=== PATIENT | male | born 1950 | race Caucasian/White ===

== ENCOUNTER 2019-02-18 06:42 | Outpatient (CLI) | payer OTHER ==
--- NOTE | 2019-02-22 11:33 | ECHO2D ---
Date of Exam: 02/18/19 Ordering Physician: DR. CHERELLE NAGEL Room #: OP Reason for Echo: SOB, CAD WITH STENT M-Mode Normal Adult Results LV Dimensions Normal Adult Results AoV Opening excursions >1.6 1.6 LVEDD-base- 3.5-5.8 5.1 Ao root dimensions 2.0-3.7 3.5 LVESD-base- 3.1-4.6 L. Atrium dimensions 1.9-3.8 4.6 Post. Wall thickness 0.8-1.1 1.1 IV septum (thickness) 0.7-1.2 1.2 Post. Wall excursion 0.72-1.3 NORMAL Septal motion NORMAL Systolic motion R. Ventricular cavity 1.5-2.0 NORMAL LVEF 60% 60% Paradoxical septal wall motion NORMAL 2-D : 2-D M Mode Echocardiogram was performed using apical four chamber and left parasternal long and short axis views. Mitral, tricuspid and aortic valves appear to be normal. Contractility of the left ventricle seems to be normal, so is the cavity size. Enlarged Left atrial cavity. Aortic root appears to be normal. There is no pericardial effusion. There is no thrombus noted in the left ventricular or left aortic cavity. No mitral valve prolapse noted. M-MODE: MV: NORMAL AV: NORMAL TV: NORMAL PV: CHAMBER SIZE: ENLARGED LEFT ATRIAL CAVITY WALL MOTION: NORMAL PERICARDIUM: NORMAL INTERPRETATION: 1. BORDERLINE LEFT VENTRICULAR HYPERTROPHY--ENLARGED LEFT ATRIAL CAVITY 2. NORMAL LEFT VENTRICULAR CONTRACTILITY 3. NORMAL VALVES MTDD
== END 2019-02-18 06:43 | disposition home or self-care (01) ==
LOC: CAR 06:42
PROVIDERS: ATTEND Internal Medicine
DX: R06.02 Shortness of breath (principal); I25.10 Atherosclerotic heart disease of native coronary artery without angina pectoris; Z95.5 Presence of coronary angioplasty implant and graft
CPT/HCPCS: 93005; 93010

== ENCOUNTER 2019-02-19 06:40 | Outpatient (CLI) ==
--- NOTE | 2019-02-22 08:17 | ECHOSTRESS ---
Date of Exam: 02/19/19 Ordering Physician: DR. CHERELLE NAGEL Reason for Echo: SOB, CAD WITH STENT, STRESS TEST--NO ISCHEMIA M-Mode Normal Adult Results LV Dimensions Normal Adult Results AoV Opening excursions >1.6 LVEDD-base- 3.5-5.8 Ao root dimensions 2.0-3.7 LVESD-base- 3.1-4.6 L. Atrium dimensions 1.9-3.8 Post. Wall thickness 0.8-1.1 IV septum (thickness) 0.7-1.2 Post. Wall excursion 0.72-1.3 Septal motion Systolic motion R. Ventricular cavity 1.5-2.0 LVEF 60% Paradoxical septal wall motion 2-D: NORMAL LEFT VENTRICULAR CONTRACTILITY--RESTING AND POST EXERCISE M-MODE: MV: AV: TV: PV: CHAMBER SIZE: WALL MOTION: NORMAL LEFT VENTRICULAR CONTRACTILITY--RESTING AND POST EXERCISE PERICARDIUM: INTERPRETATION: 1. NORMAL LEFT VENTRICULAR CONTRACTILITY--RESTING AND POST EXERCISE MTDD
--- NOTE | 2019-02-22 08:25 | STRESSECHO ---
Date of Test: 02/19/19 Ordering Physician: DR. CHERELLE NAGEL Occupation:RETIRED Reason for Exam: SOB, CAD WITH STENT Smoking History: NON SMOKER Height: 70" Weight: 198 LBS Current Medications: METFORMIN, JANUMENT, OMEPRAZOLE, METAXALONE,AMLODIPINE, FENOFIBRATE, LOSARTAN, TERAZOSIN, CARVEDILOL, TARKA, CLOPIDOGREL, CRESTOR, TRULICITY, TRESIBA, SOMA, HYDROCODONE Resting EKG: SINUS RHYTHM/ LEFT VENTRICLE HYPERTROPHY STRAIN PATTERN Target Heart Rate: 128/151 S-T SEGMENT STAGE MPH/GRADE HEART RATE BPM BLOOD PRESSURE MMHG RHYTHM +/- ELEVATION DEPRESSION SYMPTOMS AT REST 72 BPM 136/82 MMHG SR X NONE 1 1.7/10% 2 2.5/12% 3 3.4/14% 4 4.2/16% 5 5.0/18% Immediately After 143 BPM 148/78 MMHG SR X SHORT OF AIR Minutes Post Exercise 3:00 65 BPM SR X NONE Minutes Post Exercise 5:00 65 BPM 140/78 MMHG SR X NONE DURATION OF EXERCISE: 3:11 MAXIMUM HEART RATE REACHED: 143 BPM REASON FOR TERMINATION: SHORT OF AIR 96% OXYGEN SATURATION WITH EXERCISE ON ROOM AIR METS 5.0 INTERPRETATION: 1. NO EVIDENCE OF ISCHEMIA BY ST-T WAVE 2. FEW ISOLATED PVC'S/ COUPLETS WITH EXERCISE 3. NO CHEST PAIN OR DISCOMFORT 4. BLOOD PRESSURE RESPONSE: NORMAL NORMAL LEFT VENTRICULAR CONTRACTILITY--RESTING AND POST EXERCISE MTDD
== END 2019-02-19 06:41 | disposition home or self-care (01) ==
LOC: CAR 06:40
PROVIDERS: ATTEND Internal Medicine
DX: R06.02 Shortness of breath (principal); I25.10 Atherosclerotic heart disease of native coronary artery without angina pectoris; Z95.5 Presence of coronary angioplasty implant and graft

== ENCOUNTER 2024-01-29 06:27 | Inpatient (IN) ==
--- NOTE | 2024-01-29 06:40 | ED.PDOC ---
General <PIA RESENDEZ MD - Last Filed: 01/29/24 07:11> ED Provider: Dr. PIA RESENDEZ MD Chief Complaint: Shortness of Air Stated Complaint: Patient for history of hypertension, type 2 diabetes, previous ischemic stroke last summer 2022 previous cardiac catheterization 1 send insertion complains of waking from sleep this morning shortness of breath associated with chest tightness pain scale 2/10. Patient also complains having slight productive cough. Denies fever, chills, arthralgia. Patient also denies exertional dyspnea and orthopnea. Time Seen by Provider: 01/29/24 06:51 Mode of Arrival: Walk-In Information Source: Patient Exam Limitations: Clinical condition Primary Care Provider: CHERELLE MORTON MD Seen Within Last 72 Hours for Same Complaint By: ED What is Opioid Naive?: *Opioid Naive implies the patient is not already taking opioids or not chronically receiving opioids on a daily basis. *PRN dosing is not "usually" associated with tolerance. *Patients are at higher risk of over-sedation and aspiration. What is Opioid Tolerant?: *Opioid Tolerance implies less than the expected response to an opioid. *Acquired tolerance is defined by the patient taking 60mg of oral morphine daily (or equianalgesic dose of another opioid) for 1 week or more. *Often associated with chronic pain. *May take more than usual dose to achieve desired pain control. <CAROLINE BERGMAN MD - Last Filed: 01/29/24 19:40> Nursing and Triage Documentation Reviewed and Agree: Yes Respiratory Complaint Exam <CAROLINE BERGMAN MD - Last Filed: 01/29/24 19:40> Shortness of Air Complaint/Exam Differential Diagnoses: CHF, Pulmonary Edema, IN, Pneumonia, Pulmonary Embolism, Bronchitis, Bronchiolitis, RSV and URI Quality Indicator For Non-Traumatic Chest Pain/Syncope: EKG Performed Review of Systems <PIA RESENDEZ MD - Last Filed: 01/29/24 07:11> Review Of Systems Constitutional: Reports No symptoms Ears, Nose, Mouth, Throat: Reports No symptoms Respiratory: Reports Cough and Shortness of Breath Cardiac: Reports Chest pain (Described as chest tightness) GI: Reports No symptoms : Reports No symptoms Skin: Reports No symptoms Neurological: Reports No symptoms Endocrine: Reports No symptoms Hematologic/Lymphatic: Reports No symptoms All Other Systems: Reviewed and Negative PFSH <PIA RESENDEZ MD - Last Filed: 01/29/24 07:11> Medical History Basal cell carcinoma, face 08/21 C44.310 - Basal cell carcinoma of skin of unspecified parts of face (ICD-10) History of COVID-19 11/2021 Z86.16 - Personal history of COVID-19 (ICD-10) Skin cancer of face basal cell 08/2019 C44.300 - Unspecified malignant neoplasm of skin of unspecified part of face (ICD-10) Left shoulder pain M25.512 - Pain in left shoulder (ICD-10) Metabolic syndrome E88.81 - Metabolic syndrome (ICD-10) Vitamin B12 deficiency E53.8 - Deficiency of other specified B group vitamins (ICD-10) COPD (chronic obstructive pulmonary disease) J44.9 - Chronic obstructive pulmonary disease, unspecified (ICD-10) Anemia, unspecified D64.9 - Anemia, unspecified (ICD-10) Presence of stent in coronary artery in patient with coronary artery disease I25.10 - Atherosclerotic heart disease of [place] coronary artery without angina pectoris (ICD-10) Z95.5 - Presence of coronary angioplasty implant and graft (ICD-10) Radiculopathy of cervical spine M54.12 - Radiculopathy, cervical region (ICD-10) Degenerative joint disease (DJD) of lumbar spine M47.816 - Spondylosis without myelopathy or radiculopathy, lumbar region (ICD-10) Bilateral leg weakness R29.898 - Other symptoms and signs involving the musculoskeletal system (ICD-10) 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 - Type 2 diabetes mellitus with diabetic chronic kidney disease (ICD- 10) N18.2 - Chronic kidney disease, stage 2 (mild) (ICD-10) HTN (hypertension) I10 - Essential (primary) hypertension (ICD-10) Dyslipidemia E78.5 - Hyperlipidemia, unspecified (ICD-10) DM type 2 (diabetes mellitus, type 2) E11.9 - Type 2 diabetes mellitus without complications (ICD-10) Family History FATHER Heart attack Mother Diabetes Social History Smoking and tobacco status: Never smoker Alcohol intake: current Alcohol intake frequency: holidays/special occasions only Substance use type: does not use Special bassam needs: No Agree to transfusion: Yes Adopted: No Caregiver/support person: No Foster care: No Household members: none Housing: house Marital status: W / Lives independently: Yes Daycare: no daycare Number of children: 3 service: Yes status: retired branch: [place] intermediate: No Current occupational status: retired History of recent travel: No Do you think of yourself as: straight/heterosexual Current gender identity: male Seatbelt use: always Drives intoxicated or rides with intoxicated 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 Water heater temperature set < 120 degrees: Yes Working smoke detector in home: Yes Fire extinguisher in home: Yes Carbon monoxide detector in home: Yes Surgical History H/O heart artery stent Z95.5 - Presence of coronary angioplasty implant and graft (ICD-10) Physical Exam <PIA RESENDEZ MD - Last Filed: 01/29/24 07:11> Physical Exam Appearance: Reports Ill-appearing Ill-appearing: Mild Pain Distress: None Eyes: Reports FELIPE and Conjunctiva clear ENT: Reports Ears normal, Nose normal and Oropharynx normal Neck: Supple (There is JVD noted at the angle of the mandible at 40 degrees.) Respiratory: Reports Breath sounds diminished (Diminished breath sounds at the bases with inspiratory crackles noted.) Cardiovascular: Reports RRR, Pulses normal, No rub and Tachycardia GI/: Reports Soft, Nontender, No masses and Bowel sounds normal Skin: Reports Warm and Dry Neurological: Reports Sensation intact, Motor intact and Reflexes intact Psychiatric: Reports Affect appropriate and Mood appropriate <CAROLINE BERGMAN MD - Last Filed: 01/29/24 19:40> Physical Exam Musculoskeletal: Reports Normal strength, ROM intact and No edema Interpretation <CAROLINE BERGMAN MD - Last Filed: 01/29/24 19:40> Radiology Interpretation Radiology Interpretation By: Radiologist Radiology Results: Positive (Bilateral bronchial thickening and reticular opacities likely due to pneumonia or edema.) Radiology Interpretation By: Radiologist Radiology Results: Positive (1. No pulmonary embolus. 2. Moderate pulmonary edema. 3. Mediastinal and hilar lymphadenopathy. Correlation with laboratory values recommended. Follow-up CT within 3 months recommended for reassessment.) Physician Notification <CAROLINE BERGMAN MD - Last Filed: 01/29/24 19:40> Case Discussed Physician Notified: Dr. Morton Time of Notification: 10:07 (Call hospice for admission, get an echo) Physician Notified: Florin Cowan NP Time of Notification: 10:19 (Accepted admission, states wants observation) Critical Care Note <CAROLINE BERGMAN MD - Last Filed: 01/29/24 19:40> Critical Care Note Total Critical Care Time (mins): 30 Course <PIA RESENDEZ MD - Last Filed: 01/29/24 07:11> Course 01/29/24 06:52 01/29/24 06:52 Orders, Labs, Meds: Lab Review 01/29/24 01/29/24 01/29/24 06:45 06:52 06:54 WBC 7.32 RBC 4.23 L Hgb 11.1 L Hct 35.9 L MCV 84.9 MCH 26.2 L MCHC 30.9 L RDW Coeff of Ramesh 15.3 H Plt Count 176 Immature Gran % (Auto) 0.4 Neut % (Auto) 66.7 Lymph % (Auto) 22.4 Rice % (Auto) 8.3 Eos % (Auto) 1.5 Baso % (Auto) 0.7 Neut # (Auto) 4.9 Lymph # (Auto) 1.6 Rice # (Auto) 0.6 Eos # (Auto) 0.1 Baso # (Auto) 0.1 Immature Gran # (Auto) 0.0 PT 10.5 INR 1.01 Puncture Site R radial Base Excess 2.5 O2 Saturation 94.5 ABG pH 7.46 H ABG pCO2 37.0 ABG pO2 69.0 L ABG HCO3 26.3 ABG Total CO2 27.4 H Eladio Test + Hemoglobin 0.9 Oxyhemoglobin 94.0 L Carboxyhemoglobin 1.4 Total Hemoglobin 12.1 FiO2 % 21.0 Sodium 138.2 Potassium 3.85 Chloride 106.5 Carbon Dioxide 22.2 Anion Gap 13.35 BUN 15.9 Creatinine 0.81 Estimated GFR (MDRD) 93.00 BUN/Creatinine Ratio 19.62 Glucose 192.4 H Lactic Acid 1.70 Calcium 9.14 Magnesium 1.67 Total Bilirubin 0.50 AST 24.6 ALT 20.4 Alkaline Phosphatase 67.0 Troponin I 0.015 NT-Pro-B Natriuret Pep 982 H Total Protein 7.09 Albumin 4.24 Globulin 2.85 Albumin/Globulin Ratio 1.48 D-Dimer 782.93 H Influ A Molecular Assay Negative by naat Influ B Molecular Assay Negative by naat RSV Antigen Negative by naat SARS CoV-2 RNA Rapid AKOSUA Negative 01/29/24 09:05 WBC RBC Hgb Hct MCV MCH MCHC RDW Coeff of Ramesh Plt Count Immature Gran % (Auto) Neut % (Auto) Lymph % (Auto) Rice % (Auto) Eos % (Auto) Baso % (Auto) Neut # (Auto) Lymph # (Auto) Rice # (Auto) Eos # (Auto) Baso # (Auto) Immature Gran # (Auto) PT INR Puncture Site Base Excess O2 Saturation ABG pH ABG pCO2 ABG pO2 ABG HCO3 ABG Total CO2 Eladio Test Hemoglobin Oxyhemoglobin Carboxyhemoglobin Total Hemoglobin FiO2 % Sodium Potassium Chloride Carbon Dioxide Anion Gap BUN Creatinine Estimated GFR (MDRD) BUN/Creatinine Ratio Glucose Lactic Acid Calcium Magnesium Total Bilirubin AST ALT Alkaline Phosphatase Troponin I 0.014 NT-Pro-B Natriuret Pep Total Protein Albumin Globulin Albumin/Globulin Ratio D-Dimer Influ A Molecular Assay Influ B Molecular Assay RSV Antigen SARS CoV-2 RNA Rapid AKOSUA Orders Category Date Time Status ADMIT OBSERVATION [PLACE PATIENT OBSERVATION] .TO ADMISSION 01/29/24 10:20 Active MEDSURG (MONITORED BED) ABG DRAW REQUEST Stat CARDIO 01/29/24 06:53 Completed ECHOCARDIOGRAM 2D-M MODE Routine CARDIO 01/29/24 10:18 Completed EKG-(ED ONLY) Stat CARDIO 01/29/24 06:40 Completed ACTIVITY .Early Mobilization for VTE Prevention CARE 01/29/24 10:45 Active BLOOD GLUCOSE MONITORING (MED/SURG) 0630,1100,1700,2100 CARE 01/29/24 10:46 Active GIVE HS SNACK 2100 CARE 01/29/24 10:45 Active INTAKE & OUTPUT Q8HR CARE 01/29/24 10:45 Completed NPO REMINDER: IMAGING ONCE CARE 01/29/24 07:59 Completed REMINDER: Give Insulin if Needed 0630,1100,1700,2100 CARE 01/29/24 10:45 Active TELEMETRY MONITORING TELE CARE 01/29/24 10:20 Active VITAL SIGNS Q4HR CARE 01/29/24 10:45 Active WEIGH PATIENT 0600 CARE 01/30/24 06:00 Active ADA 1800 CHANTEL. DIET DIETARY 01/29/24 Lunch Ordered FLUID RESTRICTION 1800 ML DIETARY 01/29/24 Lunch Ordered HS SNACK DIETARY 01/29/24 Dinner Ordered CONSULT DIETITIAN ONCE DIETITIAN 01/29/24 11:36 Active ABG COOX Stat LAB 01/29/24 06:54 Completed BLOOD CULTURE (ED ONLY) Stat LAB 01/29/24 07:05 Received CBC W/ AUTO DIFF DAILY@0600 LAB 01/30/24 06:00 Ordered CBC W/ AUTO DIFF DAILY@0600 LAB 01/31/24 06:00 Ordered CBC W/ AUTO DIFF Stat LAB 01/29/24 06:52 Completed CMP [COMPREHENSIVE METABOLIC PANEL] Stat LAB 01/29/24 06:52 Completed COMPREHENSIVE METABOLIC PANEL DAILY@0600 LAB 01/30/24 06:00 Ordered COMPREHENSIVE METABOLIC PANEL DAILY@0600 LAB 01/31/24 06:00 Ordered COVID [SARS COV-2 RNA RAPID AKOSUA] Stat LAB 01/29/24 06:45 Completed D-DIMER Stat LAB 01/29/24 06:52 Completed FLU A & B MOLECULAR [FLU A/B MOLECULAR] Stat LAB 01/29/24 06:45 Completed LACTIC ACID Stat LAB 01/29/24 06:52 Completed MAGNESIUM Stat LAB 01/29/24 06:52 Completed NT-PROBNP(ED) Stat LAB 01/29/24 06:52 Completed PT WITH INR Stat LAB 01/29/24 06:52 Completed RSV Stat LAB 01/29/24 06:45 Completed TROPONIN I Stat LAB 01/29/24 06:52 Completed TROPONIN I Stat LAB 01/29/24 09:05 Completed Acetaminophen [Tylenol] Meds 01/29/24 10:45 Active 650 mg PO Q4H PRN Furosemide [Lasix] Meds 01/29/24 15:00 Active 20 mg IVP Q8HR Furosemide [Lasix] Meds 01/29/24 08:39 Discontinued 40 mg IVP ONCE ONE Insulin Regular, Human [Humulin R] Meds 01/29/24 11:18 Active See Protocol SUBCUT PRN PRN Sodium Chloride 0.9% [Sodium Chloride] 1,000 ml Meds 01/29/24 06:40 Discontinued IV 50 mls/hr RESUSCITATION STATUS Routine OTHERS 01/29/24 11:47 Ordered CHEST, 1V AP ONLY Stat RADS 01/29/24 06:40 Completed CTA CHEST PE PROTOCOL Stat RADS 01/29/24 07:58 Completed Medications Generic Name Dose Route Start Last Admin Trade Name Freq PRN Reason Stop Dose Admin Acetaminophen 650 mg 01/29/24 10:45 Acetaminophen 325 Mg Tablet PO Q4H PRN Mild Pain Hydrocodone Bitart/Acetaminophen 1 tab 01/29/24 12:32 Hydrocodone Bit/Acetaminophen 10/325 Mg Tablet PO Q6H PRN Pain Amlodipine Besylate 10 mg 01/29/24 13:00 01/29/24 13:33 Amlodipine Besylate 5 Mg Tablet PO 10 mg DAILY MICHAELA Administration Carisoprodol 350 mg 01/29/24 13:00 01/29/24 16:13 Carisoprodol 350 Mg Tablet PO 350 mg QID MICHAELA Administration Carvedilol 25 mg 01/29/24 13:00 01/29/24 16:13 Carvedilol 12.5 Mg Tablet PO 25 mg BIDWM2 MICHAELA Administration Clopidogrel Bisulfate 75 mg 01/29/24 13:00 01/29/24 13:32 Clopidogrel Bisulfate 75 Mg Tablet PO 75 mg DAILY MICAHELA Administration Furosemide 20 mg 01/29/24 15:00 01/29/24 14:43 Furosemide Inj 20 Mg/2 Ml Vial IVP 20 mg Q8HR MICHAELA Administration Gabapentin 300 mg 01/29/24 15:00 01/29/24 14:43 Gabapentin 300 Mg Capsule PO 300 mg TID MICHAELA Administration Insulin Human Regular 0 unit 01/29/24 11:18 01/29/24 17:53 Insulin Regular, Human 100 Unit/Ml (10ml) Vial SUBCUT 3 unit PRN PRN Administration Hyperglycemia Protocol Non-Formulary Medication 1 tab 01/29/24 12:45 01/29/24 14:11 Trandolapril-Verapamil PO Not Given DAILY MICHAELA Omeprazole 20 mg 01/29/24 17:00 01/29/24 16:14 Omeprazole 20 Mg Capsule.Dr PO 20 mg BIDAC2 MICHAELA Administration Rosuvastatin Calcium 20 mg 01/29/24 13:00 01/29/24 13:34 Rosuvastatin Calcium 10 Mg Tablet PO 20 mg DAILY MICHAELA Administration Sodium Chloride 1 syr 01/29/24 21:00 0.9% Sodium Chloride 10 Ml Disp.Syrin IVF Q8HR MICHAELA Tamsulosin HCl 0.4 mg 01/29/24 13:00 01/29/24 13:32 Tamsulosin Hcl 0.4 Mg Cap.Er.24h PO 0.4 mg DAILY MICHAELA Administration Terazosin HCl 2 mg 01/29/24 17:00 01/29/24 16:13 Terazosin Hcl 1 Mg Capsule PO 2 mg BEDTIME MICHAELA Administration Verapamil HCl 240 mg 01/30/24 09:00 Verapamil Hcl 120 Mg Tablet.Er PO DAILY MICHAELA Discontinued Medications Generic Name Dose Route Start Last Admin Trade Name Tristianq PRN Reason Stop Dose Admin Diltiazem HCl 15 mg 01/29/24 14:14 01/29/24 14:43 Diltiazem Hcl Inj 25 Mg/5 Ml Vial IVP 01/29/24 14:15 15 mg ONCE ONE Administration Furosemide 40 mg 01/29/24 08:39 01/29/24 08:46 Furosemide Inj 40 Mg/4 Ml Vial IVP 01/29/24 08:40 40 mg ONCE ONE Administration Sodium Chloride 1,000 mls @ 50 mls/hr 01/29/24 06:40 01/29/24 08:46 Sodium Chloride IV 01/30/24 02:39 0 mls/hr .Q20H ONE Infusion Metoprolol Tartrate 5 mg 01/29/24 12:29 01/29/24 13:29 Metoprolol Tartrate 5 Mg/5 Ml Vial IVP 01/29/24 12:30 5 mg ONCE ONE Administration Verapamil HCl 180 mg 01/29/24 16:13 01/29/24 16:30 Verapamil Hcl 180 Mg Tablet.Er PO 01/29/24 16:14 180 mg ONCE ONE Administration Vital Signs: Temp Pulse Resp BP Pulse Ox O2 Del Method 01/29/24 11:00 Room Air 01/29/24 10:56 20 Room Air 01/29/24 10:56 98.1 F 123 H 20 96 Room Air 01/29/24 10:45 121 H 18 147/95 H 95 01/29/24 06:29 96.9 F L 119 H 20 144/96 H 89 L <CAROLINE BERGMAN MD - Last Filed: 01/29/24 19:40> Course Orders, Labs, Meds: Lab Review 01/29/24 01/29/24 01/29/24 06:45 06:52 06:54 WBC 7.32 RBC 4.23 L Hgb 11.1 L Hct 35.9 L MCV 84.9 MCH 26.2 L MCHC 30.9 L RDW Coeff of Ramesh 15.3 H Plt Count 176 Immature Gran % (Auto) 0.4 Neut % (Auto) 66.7 Lymph % (Auto) 22.4 Rice % (Auto) 8.3 Eos % (Auto) 1.5 Baso % (Auto) 0.7 Neut # (Auto) 4.9 Lymph # (Auto) 1.6 Rice # (Auto) 0.6 Eos # (Auto) 0.1 Baso # (Auto) 0.1 Immature Gran # (Auto) 0.0 PT 10.5 INR 1.01 Puncture Site R radial Base Excess 2.5 O2 Saturation 94.5 ABG pH 7.46 H ABG pCO2 37.0 ABG pO2 69.0 L ABG HCO3 26.3 ABG Total CO2 27.4 H Eladio Test + Hemoglobin 0.9 Oxyhemoglobin 94.0 L Carboxyhemoglobin 1.4 Total Hemoglobin 12.1 FiO2 % 21.0 Sodium 138.2 Potassium 3.85 Chloride 106.5 Carbon Dioxide 22.2 Anion Gap 13.35 BUN 15.9 Creatinine 0.81 Estimated GFR (MDRD) 93.00 BUN/Creatinine Ratio 19.62 Glucose 192.4 H Lactic Acid 1.70 Calcium 9.14 Magnesium 1.67 Total Bilirubin 0.50 AST 24.6 ALT 20.4 Alkaline Phosphatase 67.0 Troponin I 0.015 NT-Pro-B Natriuret Pep 982 H Total Protein 7.09 Albumin 4.24 Globulin 2.85 Albumin/Globulin Ratio 1.48 D-Dimer 782.93 H Influ A Molecular Assay Negative by naat Influ B Molecular Assay Negative by naat RSV Antigen Negative by naat SARS CoV-2 RNA Rapid AKOSUA Negative 01/29/24 09:05 WBC RBC Hgb Hct MCV MCH MCHC RDW Coeff of Ramesh Plt Count Immature Gran % (Auto) Neut % (Auto) Lymph % (Auto) Rice % (Auto) Eos % (Auto) Baso % (Auto) Neut # (Auto) Lymph # (Auto) Rice # (Auto) Eos # (Auto) Baso # (Auto) Immature Gran # (Auto) PT INR Puncture Site Base Excess O2 Saturation ABG pH ABG pCO2 ABG pO2 ABG HCO3 ABG Total CO2 Eladio Test Hemoglobin Oxyhemoglobin Carboxyhemoglobin Total Hemoglobin FiO2 % Sodium Potassium Chloride Carbon Dioxide Anion Gap BUN Creatinine Estimated GFR (MDRD) BUN/Creatinine Ratio Glucose Lactic Acid Calcium Magnesium Total Bilirubin AST ALT Alkaline Phosphatase Troponin I 0.014 NT-Pro-B Natriuret Pep Total Protein Albumin Globulin Albumin/Globulin Ratio D-Dimer Influ A Molecular Assay Influ B Molecular Assay RSV Antigen SARS CoV-2 RNA Rapid AKOSUA Orders Category Date Time Status ADMIT OBSERVATION [PLACE PATIENT OBSERVATION] .TO ADMISSION 01/29/24 10:20 Active MEDSURG (MONITORED BED) ABG DRAW REQUEST Stat CARDIO 01/29/24 06:53 Completed ECHOCARDIOGRAM 2D-M MODE Routine CARDIO 01/29/24 10:18 Completed EKG-(ED ONLY) Stat CARDIO 01/29/24 06:40 Completed ACTIVITY .Early Mobilization for VTE Prevention CARE 01/29/24 10:45 Active BLOOD GLUCOSE MONITORING (MED/SURG) 0630,1100,1700,2100 CARE 01/29/24 10:46 Active GIVE HS SNACK 2100 CARE 01/29/24 10:45 Active INTAKE & OUTPUT Q8HR CARE 01/29/24 10:45 Completed NPO REMINDER: IMAGING ONCE CARE 01/29/24 07:59 Completed REMINDER: Give Insulin if Needed 0630,1100,1700,2100 CARE 01/29/24 10:45 Active TELEMETRY MONITORING TELE CARE 01/29/24 10:20 Active VITAL SIGNS Q4HR CARE 01/29/24 10:45 Active WEIGH PATIENT 0600 CARE 01/30/24 06:00 Active ADA 1800 CHANTEL. DIET DIETARY 01/29/24 Lunch Ordered FLUID RESTRICTION 1800 ML DIETARY 01/29/24 Lunch Ordered HS SNACK DIETARY 01/29/24 Dinner Ordered CONSULT DIETITIAN ONCE DIETITIAN 01/29/24 11:36 Active ABG COOX Stat LAB 01/29/24 06:54 Completed BLOOD CULTURE (ED ONLY) Stat LAB 01/29/24 07:05 Received CBC W/ AUTO DIFF DAILY@0600 LAB 01/30/24 06:00 Ordered CBC W/ AUTO DIFF DAILY@0600 LAB 01/31/24 06:00 Ordered CBC W/ AUTO DIFF Stat LAB 01/29/24 06:52 Completed CMP [COMPREHENSIVE METABOLIC PANEL] Stat LAB 01/29/24 06:52 Completed COMPREHENSIVE METABOLIC PANEL DAILY@0600 LAB 01/30/24 06:00 Ordered COMPREHENSIVE METABOLIC PANEL DAILY@0600 LAB 01/31/24 06:00 Ordered COVID [SARS COV-2 RNA RAPID AKOSUA] Stat LAB 01/29/24 06:45 Completed D-DIMER Stat LAB 01/29/24 06:52 Completed FLU A & B MOLECULAR [FLU A/B MOLECULAR] Stat LAB 01/29/24 06:45 Completed LACTIC ACID Stat LAB 01/29/24 06:52 Completed MAGNESIUM Stat LAB 01/29/24 06:52 Completed NT-PROBNP(ED) Stat LAB 01/29/24 06:52 Completed PT WITH INR Stat LAB 01/29/24 06:52 Completed RSV Stat LAB 01/29/24 06:45 Completed TROPONIN I Stat LAB 01/29/24 06:52 Completed TROPONIN I Stat LAB 01/29/24 09:05 Completed Acetaminophen [Tylenol] Meds 01/29/24 10:45 Active 650 mg PO Q4H PRN Furosemide [Lasix] Meds 01/29/24 15:00 Active 20 mg IVP Q8HR Furosemide [Lasix] Meds 01/29/24 08:39 Discontinued 40 mg IVP ONCE ONE Insulin Regular, Human [Humulin R] Meds 01/29/24 11:18 Active See Protocol SUBCUT PRN PRN Sodium Chloride 0.9% [Sodium Chloride] 1,000 ml Meds 01/29/24 06:40 Discontinued IV 50 mls/hr RESUSCITATION STATUS Routine OTHERS 01/29/24 11:47 Ordered CHEST, 1V AP ONLY Stat RADS 01/29/24 06:40 Completed CTA CHEST PE PROTOCOL Stat RADS 01/29/24 07:58 Completed Medications Generic Name Dose Route Start Last Admin Trade Name Freq PRN Reason Stop Dose Admin Acetaminophen 650 mg 01/29/24 10:45 Acetaminophen 325 Mg Tablet PO Q4H PRN Mild Pain Hydrocodone Bitart/Acetaminophen 1 tab 01/29/24 12:32 Hydrocodone Bit/Acetaminophen 10/325 Mg Tablet PO Q6H PRN Pain Amlodipine Besylate 10 mg 01/29/24 13:00 01/29/24 13:33 Amlodipine Besylate 5 Mg Tablet PO 10 mg DAILY MICHAELA Administration Carisoprodol 350 mg 01/29/24 13:00 01/29/24 16:13 Carisoprodol 350 Mg Tablet PO 350 mg QID MICHAELA Administration Carvedilol 25 mg 01/29/24 13:00 01/29/24 16:13 Carvedilol 12.5 Mg Tablet PO 25 mg BIDWM2 MICHAELA Administration Clopidogrel Bisulfate 75 mg 01/29/24 13:00 01/29/24 13:32 Clopidogrel Bisulfate 75 Mg Tablet PO 75 mg DAILY MICHAELA Administration Furosemide 20 mg 01/29/24 15:00 01/29/24 14:43 Furosemide Inj 20 Mg/2 Ml Vial IVP 20 mg Q8HR MICHAELA Administration Gabapentin 300 mg 01/29/24 15:00 01/29/24 14:43 Gabapentin 300 Mg Capsule PO 300 mg TID MICHAELA Administration Insulin Human Regular 0 unit 01/29/24 11:18 01/29/24 17:53 Insulin Regular, Human 100 Unit/Ml (10ml) Vial SUBCUT 3 unit PRN PRN Administration Hyperglycemia Protocol Non-Formulary Medication 1 tab 01/29/24 12:45 01/29/24 14:11 Trandolapril-Verapamil PO Not Given DAILY MICHAELA Omeprazole 20 mg 01/29/24 17:00 01/29/24 16:14 Omeprazole 20 Mg Capsule.Dr PO 20 mg BIDAC2 MICHAELA Administration Rosuvastatin Calcium 20 mg 01/29/24 13:00 01/29/24 13:34 Rosuvastatin Calcium 10 Mg Tablet PO 20 mg DAILY MICHAELA Administration Sodium Chloride 1 syr 01/29/24 21:00 0.9% Sodium Chloride 10 Ml Disp.Syrin IVF Q8HR MICHAELA Tamsulosin HCl 0.4 mg 01/29/24 13:00 01/29/24 13:32 Tamsulosin Hcl 0.4 Mg Cap.Er.24h PO 0.4 mg DAILY MICHAELA Administration Terazosin HCl 2 mg 01/29/24 17:00 01/29/24 16:13 Terazosin Hcl 1 Mg Capsule PO 2 mg BEDTIME MICHAELA Administration Verapamil HCl 240 mg 01/30/24 09:00 Verapamil Hcl 120 Mg Tablet.Er PO DAILY MICHAELA Discontinued Medications Generic Name Dose Route Start Last Admin Trade Name Freq PRN Reason Stop Dose Admin Diltiazem HCl 15 mg 01/29/24 14:14 01/29/24 14:43 Diltiazem Hcl Inj 25 Mg/5 Ml Vial IVP 01/29/24 14:15 15 mg ONCE ONE Administration Furosemide 40 mg 01/29/24 08:39 01/29/24 08:46 Furosemide Inj 40 Mg/4 Ml Vial IVP 01/29/24 08:40 40 mg ONCE ONE Administration Sodium Chloride 1,000 mls @ 50 mls/hr 01/29/24 06:40 01/29/24 08:46 Sodium Chloride IV 01/30/24 02:39 0 mls/hr .Q20H ONE Infusion Metoprolol Tartrate 5 mg 01/29/24 12:29 01/29/24 13:29 Metoprolol Tartrate 5 Mg/5 Ml Vial IVP 01/29/24 12:30 5 mg ONCE ONE Administration Verapamil HCl 180 mg 01/29/24 16:13 01/29/24 16:30 Verapamil Hcl 180 Mg Tablet.Er PO 01/29/24 16:14 180 mg ONCE ONE Administration Vital Signs: Temp Pulse Resp BP Pulse Ox O2 Del Method 01/29/24 11:00 Room Air 01/29/24 10:56 20 Room Air 01/29/24 10:56 98.1 F 123 H 20 96 Room Air 01/29/24 10:45 121 H 18 147/95 H 95 01/29/24 06:29 96.9 F L 119 H 20 144/96 H 89 L Discharge Plan Discharge Patient Disposition: PLACED OBSERVATION Discharge Problem: CHF (congestive heart failure) Qualifiers: Heart failure type: unspecified Heart failure chronicity: acute Qualified Code(s): I50.9 - Heart failure, unspecified Did you review [place] [employer] for ALL controlled substances?: Not Applicable ED Provider: PIA RESENDEZ Condition: Fair <PIA RESENDEZ MD - Last Filed: 01/29/24 07:11> Physician Progress Note: Patient with a history of hypertension, type 2 diabetes, previous ischemic stroke last summer 2022 previous cardiac catheterization with stent insertion complains of waking sleep with chest tightness pain scale 2/10 associated with dyspnea. Patient also complains of occasional cough slight productive. Denies fever, chills, arthralgia. EKG interpretation by myself is consistent with sinus tachycardia rate of [address] changes noted inferior laterally. Patient care endorsed to Dr. Bergman for disposition at 0700 Differential diagnosis: 1) acute dyspnea 2) acute coronary syndrome <CAROLINE BERGMAN MD - Last Filed: 01/29/24 19:40> Physician Progress Note: Patient with a history of hypertension, type 2 diabetes, previous ischemic stroke last summer 2022 previous cardiac catheterization with stent insertion complains of waking sleep with chest tightness pain scale 2/10 associated with dyspnea. Patient also complains of occasional cough slight productive. Denies fever, chills, arthralgia. EKG interpretation by myself is consistent with sinus tachycardia rate of [address] changes noted inferior laterally. Patient care endorsed to Dr. Bergman for disposition at 0700 Differential diagnosis: 1) acute dyspnea 2) acute coronary syndrome A-a O<sub>2</sub> Gradient from [employer] on 01/29/2024 All calculations should be rechecked by clinician prior to use RESULT SUMMARY: 34.5 mm Hg A-a Gradient 22.5 mm Hg Expected A-a Gradient for Age INPUTS: Atmospheric pressure > 760 mm Hg Ree? > 69 mm Hg FiO? > 21 % Blair? > 37 mm Hg Age (for expected A-a gradient) > 74 years Age-Adjusted D-dimer for Venous Thromboembolism (VTE) from [employer] on 01/29/2024 All calculations should be rechecked by clinician prior to use RESULT SUMMARY: 740 g/L Age-adjusted D-dimer cutoff, FEU VTE possible Reported D-dimer is greater than cutoff; consider confirmatory testing with CTA or V/Q scan INPUTS: Age > 74 years D-dimer level reported by lab > 782 g/L D-dimer unit type > 0 = FEU (unadjusted cutoff typically ~500 or 0.50)
[2024-01-29] MEDS: SODIUM CHLORIDE 1,000 ML IV ONE (06:54)
[2024-01-29 06:59] LABS: ABG PH 7.46 (7.35-7.45); BEecf 2.5 (-2.0-3.0); COHb 1.4 (0.5-1.5); HCO3 26.3 (21-28); MetHb 0.9 (0-1.5); TCO2 27.4 (19-24); sO2 94.5 % (94-98); tHb 12.1 g/dl (11.7-17.4)
[2024-01-29 06:59] LABS: BASOPHILS # (AUTO) 0.1 K/uL (0-0.2); BASOPHILS % (AUTO) 0.7 % (0.0-3.0); EOSINOPHILS # (AUTO) 0.1 K/ul (0.0-0.7); EOSINOPHILS % (AUTO) 1.5 % (0.0-7.0); HEMATOCRIT 35.9 % (42.0-52.0); HEMOGLOBIN 11.1 g/dl (14.0-18.0); IMMATURE GRANULOCYTE % (AUTO) 0.4 % (0.0-5.0); LYMPHOCYTES # (AUTO) 1.6 K/uL (0.60-3.4); LYMPHOCYTES % (AUTO) 22.4 (10.0-50.0); MEAN CORPUSCULAR HEMOGLOBIN 26.2 pg (27.0-31.0); MEAN CORPUSCULAR HGB CONC 30.9 (31.8-35.4); MEAN CORPUSCULAR VOLUME 84.9 fl (80.0-94.0); MONOCYTES # (AUTO) 0.6 K/uL (0.4-2.0); MONOCYTES % (AUTO) 8.3 (0-10); NEUTROPHILS # (AUTO) 4.9 K/ul (2.0-6.9); NEUTROPHILS % (AUTO) 66.7 % (42.2-75.2); PLATELET COUNT 176 10^3/uL (140-440); RDW COEFFICIENT OF VARIATION 15.3 % (11.6-14.8); RED BLOOD COUNT 4.23 10^6/ul (4.70-6.10); WHITE BLOOD COUNT 7.32 K/ul (4.2-10.2)
[2024-01-29 07:12] LABS: ALANINE AMINOTRANSFERASE 20.4 U/L (0-50); ALBUMIN 4.24 g/dL (3.5-5.0); ASPARTATE AMINO TRANSFERASE 24.6 U/L (17-59); BILIRUBIN,TOTAL 0.5 mg/dL (0.2-1.3); BLOOD UREA NITROGEN 15.9 mg/dL (9-20); CALCIUM 9.14 mg/dL (8.4-10.2); CARBON DIOXIDE 22.2 mmol/L (22-30.0); CHLORIDE 106.5 mmol/L (98-107); CREATININE 0.81 mg/dL (0.60-1.10); GLUCOSE 192.4 mg/dL (74-106); POTASSIUM 3.85 mmol/L (3.5-5.1); SODIUM 138.2 mmol/L (134.5-145); TOTAL PROTEIN 7.09 g/dL (6.3-8.2)
[2024-01-29 07:16] LABS: PROTHROMBIN TIME 10.5 SEC (9.3-11.0)
[2024-01-29 07:19] LABS: MOLECULAR FLU A NEGATIVE BY NAAT (NEGATIVE); MOLECULAR FLU B NEGATIVE BY NAAT (NEGATIVE); RSV MOLECULAR NEGATIVE BY NAAT (NEGATIVE); SARS COV-2 RNA RAPID NAAT NEGATIVE (NEGATIVE)
[2024-01-29 07:23] LABS: TROPONIN I 0.015 ng/ml (0.0000-0.120)
--- NOTE | 2024-01-29 07:38 | DI ---
EXAM: CHEST ONE VIEW, FRONTAL VIEW ONLY. HISTORY: Dyspnea. COMPARISON: 04/14/2023. FINDINGS: Heart is at the upper limits normal in size. Atherosclerotic calcifications present. Mil d prominence of the central pulmonary vasculature. There is bronchial thickening and reticular opaci ties throughout both lungs which are new since the prior study. Minimal blunting of the costophrenic angles noted. No focal consolidation identified. No pneumothorax identified. No acute osseous abn ormality detected. IMPRESSION: Bilateral bronchial thickening and reticular opacities likely due to pneumonia or edema.
[2024-01-29] MEDS: LASIX IVP ONE (08:46)
--- NOTE | 2024-01-29 09:53 | CT ---
EXAM: CT ANGIOGRAM CHEST. HISTORY: Dyspnea. Elevated D-dimer. COMPARISON: Radiograph earlier the same day. TECHNIQUE: Multiple axial images of the chest were obtained following intravenous administration of 100 mL Omnipaque 350, low osmolar. Images were reformatted in the sagittal and coronal plane. 3-D a nd maximum intensity projection reformatted images were created on an independent workstation. FINDINGS: Right paratracheal lymph node measures 1.5 cm short axis on axial image 38. Subcarinal ly mph node measures 1.9 cm short axis on axial image 52 right hilar lymph node measures 1.3 cm short ax is axial image 46. Other mediastinal and hilar lymph nodes present bilaterally. Heart is mildly enlarged. Coronary artery and aortic calcifications present. No pericardial effusio n identified. No pulmonary arterial filling defect is seen Moderate bilateral pleural effusions noted. Bilateral bronchial thickening and interlobular septal t hickening present with mild ground-glass opacities. No pneumothorax identified. Small hiatal hernia noted. No acute abnormality detected within the upper abdomen. Degenerative changes present in the spine. IMPRESSION: 1. No pulmonary embolus. 2. Moderate pulmonary edema. 3. Mediastinal and hilar lymphadenopathy. Correlation with laboratory values recommended. Follow-u p CT within 3 months recommended for reassessment. All CT scans are performed using dose optimization techniques as appropriate to the performed exam an d include at least one of the following: Automated exposure control, adjustment of the mA and/or kV according t o size, and the use of iterative reconstruction technique.
[2024-01-29] MEDS ORDERED: TYLENOL PO PRN (10:45)
--- NOTE | 2024-01-29 11:03 | PCM ---
Date of Service Date Seen by Provider: 01/29/24 Time Seen by Provider: 10:50 Admit Day/Time Admission Date: 01/29/24 Admission Time: 10:20 Reason for Admission Chief Complaint: NEW ONSET CHF Hospital Provider Hospital Provider: TROY HAMEED, [facility] [place] Primary Care Physician Primary Care Physician: CHERELLE MORTON MD History of Present Illness History of Present Illness: 73 yo male presented to the ER with shortness of breath. Patient states that the shortness of breath started yesterday and progressively worsened this morning. States that around 6 am this morning that he felt pressure/heaviness in his chest and came in to the ER. Denies any pmh of copd or chf. Had 1 cardiac stent placed back in 1999. Pmh of htn and dm. Denies any fever, chills, n/v/d, or sick contacts. BNP found to be elevated. Pulmonary edema noted on CT scan. Admitted to med/surg observation for new onset chf. Case Discussed With Case Discussed With: Patient's case was discussed with the ER Physicians, Dr. Serrano. [facility] Medical History Basal cell carcinoma, face 08/21 C44.310 - Basal cell carcinoma of skin of unspecified parts of face (ICD-10) History of COVID-19 11/2021 Z86.16 - Personal history of COVID-19 (ICD-10) Skin cancer of face basal cell 08/2019 C44.300 - Unspecified malignant neoplasm of skin of unspecified part of face (ICD-10) Left shoulder pain M25.512 - Pain in left shoulder (ICD-10) Metabolic syndrome E88.81 - Metabolic syndrome (ICD-10) Vitamin B12 deficiency E53.8 - Deficiency of other specified B group vitamins (ICD-10) COPD (chronic obstructive pulmonary disease) J44.9 - Chronic obstructive pulmonary disease, unspecified (ICD-10) Anemia, unspecified D64.9 - Anemia, unspecified (ICD-10) Presence of stent in coronary artery in patient with coronary artery disease I25.10 - Atherosclerotic heart disease of [place] coronary artery without angina pectoris (ICD-10) Z95.5 - Presence of coronary angioplasty implant and graft (ICD-10) Radiculopathy of cervical spine M54.12 - Radiculopathy, cervical region (ICD-10) Degenerative joint disease (DJD) of lumbar spine M47.816 - Spondylosis without myelopathy or radiculopathy, lumbar region (ICD-10) Bilateral leg weakness R29.898 - Other symptoms and signs involving the musculoskeletal system (ICD-10) 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 - Type 2 diabetes mellitus with diabetic chronic kidney disease (ICD- 10) N18.2 - Chronic kidney disease, stage 2 (mild) (ICD-10) HTN (hypertension) I10 - Essential (primary) hypertension (ICD-10) Dyslipidemia E78.5 - Hyperlipidemia, unspecified (ICD-10) DM type 2 (diabetes mellitus, type 2) E11.9 - Type 2 diabetes mellitus without complications (ICD-10) Surgical History H/O heart artery stent Z95.5 - Presence of coronary angioplasty implant and graft (ICD-10) Family History FATHER Heart attack Mother Diabetes Social History Smoking and tobacco status: Never smoker Alcohol intake: current Alcohol intake frequency: holidays/special occasions only Substance use type: does not use Special bassam needs: No Agree to transfusion: Yes Adopted: No Caregiver/support person: No Foster care: No Household members: none Housing: house Marital status: W / Lives independently: Yes Daycare: no daycare Number of children: 3 service: Yes status: retired branch: [employer]: No Current occupational status: retired History of recent travel: No Do you think of yourself as: straight/heterosexual Current gender identity: male Seatbelt use: always Drives intoxicated or rides with intoxicated courtesy bus driver: No Water heater temperature set < 120 degrees: Yes Working smoke detector in home: Yes Fire extinguisher in home: Yes Carbon monoxide detector in home: Yes Allergies Allergies Allergy/AdvReac Type Severity Reaction Status Date / Time Sulfa (Sulfonamide AdvReac Unknown Unknown Verified 01/29/24 06:41 Antibiotics) Current Medications Home Medications omeprazole 20 mg capsule,delayed release 20 mg PO BID 12/12/22 [History Confirmed 01/29/24 Last Taken Unknown] rosuvastatin 20 mg tablet (Crestor) 20 mg PO QDAY 12/12/22 [History Confirmed 01/29/24 Last Taken Unknown] carisoprodol 350 mg tablet (Soma) 350 mg PO QID #120 tabs 02/18/23 [Rx Confirmed 01/29/24 Last Taken Unknown] carvedilol 25 mg tablet 25 mg PO BID #180 tabs 04/24/23 [Rx Confirmed 01/29/24 Last Taken Unknown] diclofenac sodium 1 % topical gel 4 g topical BID #100 grams 04/24/23 [Rx Confirmed 01/29/24 Last Taken Unknown] losartan 100 mg-hydrochlorothiazide 12.5 mg tablet 1 tab PO QDAY #30 tabs 04/24/23 [Rx Confirmed 01/29/24 Last Taken Unknown] dulaglutide 1.5 mg/0.5 mL subcutaneous pen injector ([employer]) 1.5 mg (0.5 mL) subcut QWEEK #6 mL 05/19/23 [Rx Confirmed 01/29/24 Last Taken Unknown] blood sugar diagnostic ([employer] Ultra Test strips) #100 ea 05/26/23 [Rx Confirmed 01/29/24 Last Taken Unknown] clopidogrel 75 mg tablet (Plavix) 75 mg PO QDAY 07/10/23 [History Confirmed 01/29/24 Last Taken Unknown] trandolapril 4 mg-verapamil ER 240 mg tablet,immed-exten release 24 hr See Rx Instructions .Route .COMPLEX #90 tabs 08/05/23 [Rx Confirmed 01/29/24 Last Taken Unknown] gabapentin 300 mg capsule 300 mg PO TID #270 caps 09/01/23 [Rx Confirmed 01/29/24 Last Taken Unknown] pen needle, diabetic 32 gauge x 5/32" (Comfort EZ Pen Doon) #100 ea 09/08/23 [Rx Confirmed 01/29/24 Last Taken Unknown] pen needle, diabetic 32 gauge x 5/32" (Comfort EZ Pen Doon) #100 ea 09/10/23 [Rx Confirmed 01/29/24 Last Taken Unknown] metaxalone 800 mg tablet 800 mg PO BID PRN muscle pain #60 tabs 09/23/23 [Rx Confirmed 01/29/24 Last Taken Unknown] sitagliptin phosphate 50 mg-metformin 1,000 mg tablet (Janumet) 1 tab PO BID #180 tabs 10/20/23 [Rx Confirmed 01/29/24 Last Taken Unknown] amlodipine 10 mg tablet 10 mg PO QDAY #90 tabs 11/06/23 [Rx Confirmed 01/29/24 Last Taken Unknown] hydrocodone 10 mg-acetaminophen 325 mg tablet 1 tab PO Q6H PRN pain #120 tabs 11/06/23 [Rx Confirmed 01/29/24 Last Taken Unknown] tamsulosin 0.4 mg capsule (Flomax) 0.4 mg PO QDAY MED CHANGED TO ONE TIME DAILY #90 caps 11/06/23 [Rx Confirmed 01/29/24 Last Taken Unknown] terazosin 2 mg capsule 2 mg PO QPM 11/06/23 [History Confirmed 01/29/24 Last Taken Unknown] metformin 500 mg tablet 500 mg PO BID #180 tabs 12/31/23 [Rx Confirmed 01/29/24 Last Taken Unknown] fenofibrate micronized 67 mg capsule 67 mg PO QDAY #90 caps 01/22/24 [Rx Confirmed 01/29/24 Last Taken Unknown] insulin degludec 100 unit/mL (3 mL) subcutaneous pen ([employer] FlexTouch U-100 insulin) 40 unit (0.4 mL) subcut QHS #45 mL 01/22/24 [Rx Confirmed 01/29/24 Last Taken Unknown] Home Acetaminophen (Acetaminophen 325 Mg Tablet) 650 mg PO Q4H PRN PRN Reason: Mild Pain Furosemide (Furosemide Inj 20 Mg/2 Ml Vial) 20 mg IVP Q8HR MICHAELA Discontinued Medications Furosemide (Furosemide Inj 40 Mg/4 Ml Vial) 40 mg IVP ONCE ONE Stop: 01/29/24 08:40 Last Admin: 01/29/24 08:46 Dose: 40 mg Sodium Chloride (Sodium Chloride) 1,000 mls @ 50 mls/hr IV .Q20H ONE Stop: 01/30/24 02:39 Last Infusion: 01/29/24 08:46 Dose: 0 mls/hr Opioid Naive vs. Tolerant What is Opioid Naive?: *Opioid Naive implies the patient is not already taking opioids or not chronically receiving opioids on a daily basis. *PRN dosing is not "usually" associated with tolerance. *Patients are at higher risk of over-sedation and aspiration. What is Opioid Tolerant?: *Opioid Tolerance implies less than the expected response to an opioid. *Acquired tolerance is defined by the patient taking 60mg of oral morphine daily (or equianalgesic dose of another opioid) for 1 week or more. *Often associated with chronic pain. *May take more than usual dose to achieve desired pain control. Review of Systems Constitutional: Reports No symptoms Head: Reports Normocephalic Eyes: Reports No symptoms Ears: Reports No symptoms Nose: Reports No symptoms Mouth: Reports No symptoms Throat: Reports No symptoms Cardiovascular: Reports Chest Pressure Respiratory: Reports Shortness of air Gastrointestinal: Reports No symptoms Genitourinary: Reports No Symptoms Musculoskeletal: Reports No symptoms Endocrine: Reports No symptoms Hematology: Reports No symptoms Immunology: Reports No symptoms Neurological: Reports No symptoms Psychiatric: Reports No symptoms Physical examination Most Recent Vital Signs: Most Recent Vital Signs Temperature 96.9 F L 01/29/24 06:29 Temperature Source Temporal Artery Scan 01/29/24 06:29 Pulse Rate 121 H 01/29/24 10:45 Respiratory Rate 18 01/29/24 10:45 Blood Pressure 147/95 H 01/29/24 10:45 O2 Sat by Pulse Oximetry 95 01/29/24 10:45 Height 5 ft 10 in 01/29/24 06:29 Weight 197 lb 6 oz 01/29/24 06:29 Appearance: Positive No Apparent Distress and Alert and Oriented x3 Skin: Positive Warm and Good Turgor HEENT: Positive Normocephalic and PERRLA Neck: Positive Supple and Midline Trachea Chest/Lungs: Positive Symmetrical With Equal Breath Sounds, Clear to Auscultation Bilaterally (diminished) and Good Air Movement all 4 Lung Brizuela Heart: Positive Pulses Normal and Tachycardia GI/: Positive Soft, Nontender, Bowel Sounds Normal and No Distention Musculoskeletal: Positive Not Examined Extremities: Positive Intact Peripheral Pulses, Stable Joints Without Laxity and Good ROM in All Joints Neurological: Positive Sensation Intact, Motor intact, Alert, Oriented and Muscle Strength 5/5 in Upper and Lower Extremities Bilaterally Psychiatric: Positive Oriented x4, Appropriate Mood, Appropriate Affect, Intact Memory, Good Short-Term Recall, Good Long-Term Recall, Normal Judgement and Normal Insight Labs This Visit Labs This Visit: Labs This Visit 01/29/24 01/29/24 01/29/24 06:45 06:52 06:54 WBC 7.32 RBC 4.23 L Hgb 11.1 L Hct 35.9 L MCV 84.9 MCH 26.2 L MCHC 30.9 L RDW Coeff of Ramesh 15.3 H Plt Count 176 Immature Gran % (Auto) 0.4 Neut % (Auto) 66.7 Lymph % (Auto) 22.4 Grady % (Auto) 8.3 Eos % (Auto) 1.5 Baso % (Auto) 0.7 Neut # (Auto) 4.9 Lymph # (Auto) 1.6 Grady # (Auto) 0.6 Eos # (Auto) 0.1 Baso # (Auto) 0.1 Immature Gran # (Auto) 0.0 PT 10.5 INR 1.01 Puncture Site R radial Base Excess 2.5 O2 Saturation 94.5 ABG pH 7.46 H ABG pCO2 37.0 ABG pO2 69.0 L ABG HCO3 26.3 ABG Total CO2 27.4 H Eladio Test + Hemoglobin 0.9 Oxyhemoglobin 94.0 L Carboxyhemoglobin 1.4 Total Hemoglobin 12.1 FiO2 % 21.0 Sodium 138.2 Potassium 3.85 Chloride 106.5 Carbon Dioxide 22.2 Anion Gap 13.35 BUN 15.9 Creatinine 0.81 Estimated GFR (MDRD) 93.00 BUN/Creatinine Ratio 19.62 Glucose 192.4 H Lactic Acid 1.70 Calcium 9.14 Magnesium 1.67 Total Bilirubin 0.50 AST 24.6 ALT 20.4 Alkaline Phosphatase 67.0 Troponin I 0.015 NT-Pro-B Natriuret Pep 982 H Total Protein 7.09 Albumin 4.24 Globulin 2.85 Albumin/Globulin Ratio 1.48 D-Dimer 782.93 H Influ A Molecular Assay Negative by naat Influ B Molecular Assay Negative by naat RSV Antigen Negative by naat SARS CoV-2 RNA Rapid AKOSUA Negative 01/29/24 09:05 WBC RBC Hgb Hct MCV MCH MCHC RDW Coeff of Ramesh Plt Count Immature Gran % (Auto) Neut % (Auto) Lymph % (Auto) Grady % (Auto) Eos % (Auto) Baso % (Auto) Neut # (Auto) Lymph # (Auto) Grady # (Auto) Eos # (Auto) Baso # (Auto) Immature Gran # (Auto) PT INR Puncture Site Base Excess O2 Saturation ABG pH ABG pCO2 ABG pO2 ABG HCO3 ABG Total CO2 Eladio Test Hemoglobin Oxyhemoglobin Carboxyhemoglobin Total Hemoglobin FiO2 % Sodium Potassium Chloride Carbon Dioxide Anion Gap BUN Creatinine Estimated GFR (MDRD) BUN/Creatinine Ratio Glucose Lactic Acid Calcium Magnesium Total Bilirubin AST ALT Alkaline Phosphatase Troponin I 0.014 NT-Pro-B Natriuret Pep Total Protein Albumin Globulin Albumin/Globulin Ratio D-Dimer Influ A Molecular Assay Influ B Molecular Assay RSV Antigen SARS CoV-2 RNA Rapid AKOSUA Imaging Imaging: EXAM: CT ANGIOGRAM CHEST. FINDINGS: Right paratracheal lymph node measures 1.5 cm short axis on axial image 38. Subcarinal lymph node measures 1.9 cm short axis on axial image 52 right hilar lymph node measures 1.3 cm short axis axial image 46. Other m ediastinal and hilar lymph nodes present bilaterally. Heart is mildly enlarged. Coronary artery and aortic calcifications present. No pericardial effusion identified. No pulmonary arterial filling defect is seen Moderate bilateral pleural effusions noted. Bilateral bronchial thickening and interlobular septal thickening present with mild ground-glass opacities. No pneumothorax identified. Small hiatal hernia noted. No acute abnormality detected within the upper abdomen. Degenerative changes present in the spine. IMPRESSION: 1. No pulmonary embolus. 2. Moderate pulmonary edema. 3. Mediastinal and hilar lymphadenopathy. Correlation with laboratory values recommended. Follow-up CT within 3 months recommended for reassessment. Review Statement Review Statement: I have independently reviewed and interpreted the labs/EKGs/imaging that were ordered by the ER provider. I have reviewed all outside records that are available currently in our EMR including imaging/notes/labs from previous visits. Plan Plan: 1. New onset CHF - 1 dose of lasix given in ER, continue lasix 20 mg BID, daily weight, I&O, 1800 fluid restriction, checking echo today 2. DM2 - ADA diet, accuchecks qid with ssi, continue home insulin regimen 3. Hypertension - chronic, continue home medications 4. COPD - chronic, does not appear in exacerbation, monitor DVT Prophylaxis: Plavix, Ambulation Time Spent: Greater than 80 minutes spent with patient, 50% of the time spent with this patient was devoted to counseling and coordination of care. [facility] minutes spent discussing advance care planning. Disposition: Admit to: Med/Surg Observation Discussed Plan of Care with Dr. Brooklyn Morton. Medications Medication Orders: Medications Ordered Category Date Time Status Acetaminophen [Tylenol] Meds 01/29/24 10:45 Ordered 650 mg PO Q4H PRN Furosemide [Lasix] Meds 01/29/24 16:00 Ordered 20 mg IVP Q8H
[2024-01-29 11:36] VITALS: BMI 27.6
[2024-01-29] MEDS ORDERED: NORCO 10-325 PO PRN (12:32)
[2024-01-29] MEDS: LOPRESSOR IVP ONE (13:29)
[2024-01-29] MEDS: FLOMAX PO SCH (13:32)
[2024-01-29] MEDS: PLAVIX PO SCH (13:32)
[2024-01-29] MEDS: HUMULIN R SUBCUT PRN (13:32)
[2024-01-29] MEDS: NORVASC PO SCH (13:33)
[2024-01-29] MEDS: SOMA PO SCH (13:33)
[2024-01-29] MEDS: COREG PO SCH (13:33)
[2024-01-29] MEDS: CRESTOR PO SCH (13:34)
[2024-01-29] MEDS: [UNRECOGNIZED DRUG - OTHER] PO SCH (14:11)
[2024-01-29] MEDS: VERAPAMIL PO SCH (14:11)
[2024-01-29] MEDS: TRANDOLAPRIL PO SCH (14:11)
[2024-01-29] MEDS: LASIX IVP SCH (14:43)
[2024-01-29] MEDS: NEURONTIN PO SCH (14:43)
[2024-01-29] MEDS: CARDIZEM INJ IVP ONE (14:43)
[2024-01-29] MEDS: HYTRIN PO SCH (16:13)
[2024-01-29] MEDS: PRILOSEC PO SCH (16:14)
[2024-01-29] MEDS: CALAN SR PO ONE (16:30)
[2024-01-30 05:42] LABS: BASOPHILS # (AUTO) 0.1 K/uL (0-0.2); BASOPHILS % (AUTO) 0.8 % (0.0-3.0); EOSINOPHILS # (AUTO) 0.1 K/ul (0.0-0.7); EOSINOPHILS % (AUTO) 0.9 % (0.0-7.0); HEMATOCRIT 37.1 % (42.0-52.0); HEMOGLOBIN 11.6 g/dl (14.0-18.0); IMMATURE GRANULOCYTE % (AUTO) 0.5 % (0.0-5.0); LYMPHOCYTES # (AUTO) 2.1 K/uL (0.60-3.4); LYMPHOCYTES % (AUTO) 31.9 (10.0-50.0); MEAN CORPUSCULAR HGB CONC 31.3 (31.8-35.4); MEAN CORPUSCULAR VOLUME 83.2 fl (80.0-94.0); MONOCYTES # (AUTO) 0.7 K/uL (0.4-2.0); MONOCYTES % (AUTO) 10.2 (0-10); NEUTROPHILS # (AUTO) 3.7 K/ul (2.0-6.9); NEUTROPHILS % (AUTO) 55.7 % (42.2-75.2); PLATELET COUNT 203 10^3/uL (140-440); RDW COEFFICIENT OF VARIATION 15.4 % (11.6-14.8); RED BLOOD COUNT 4.46 10^6/ul (4.70-6.10); WHITE BLOOD COUNT 6.56 K/ul (4.2-10.2)
[2024-01-30 05:58] LABS: ALANINE AMINOTRANSFERASE 19.9 U/L (0-50); ALBUMIN 4.46 g/dL (3.5-5.0); ASPARTATE AMINO TRANSFERASE 25.2 U/L (17-59); BILIRUBIN,TOTAL 0.72 mg/dL (0.2-1.3); CALCIUM 9.51 mg/dL (8.4-10.2); CARBON DIOXIDE 25.2 mmol/L (22-30.0); CHLORIDE 104.6 mmol/L (98-107); CREATININE 0.97 mg/dL (0.60-1.10); GLUCOSE 148.2 mg/dL (74-106); POTASSIUM 3.6 mmol/L (3.5-5.1); SODIUM 141.8 mmol/L (134.5-145); TOTAL PROTEIN 7.62 g/dL (6.3-8.2)
[2024-01-30] MEDS: CALAN SR PO SCH (08:13)
[2024-01-30] MEDS ORDERED: CALAN SR PO SCH (09:00)
[2024-01-30 09:14] VITALS: RESP 18
[2024-01-30 09:45] VITALS: BP 113/73; PULSE 110; TEMP 97.8
--- NOTE | 2024-01-30 11:00 | DCSUM ---
Admission Date Admission Date: 01/29/24 Discharge Date Discharge Date: 01/30/24 Admission Diagnosis Admission Diagnosis: 1. New onset CHF 2. DM2 3. Hypertension 4. COPD Discharge Diagnosis Discharge Diagnosis: 1. New onset CHF - Improving 2. DM2 - Chronic, stable 3. Hypertension - Chronic, stable 4. COPD - Chronic, stable Hospital Provider Hospital Provider: TROY HAMEED, [facility] [place] Primary Care Physician: CHERELLE NAGEL MD Summary of History and Physical Summary of History and Physical: 73 yo male presented to the ER with shortness of breath. Patient states that the shortness of breath started yesterday and progressively worsened this morning. States that around 6 am this morning that he felt pressure/heaviness in his chest and came in to the ER. Denies any pmh of copd or chf. Had 1 cardiac stent placed back in 1999. Pmh of htn and dm. Denies any fever, chills, n/v/d, or sick contacts. BNP found to be elevated. Pulmonary edema noted on CT scan. Admitted to med/surg observation for new onset chf. Hospital Course Subjective: Patient diuresed well. SOB and chest pressure resolved with lasix. Received lasix 20 mg IVP Q8H. Fluids restricted, I&O monitored, and weighed daily. Echo completed showing worsening EF at 47% per Dr. Olya Nagel. He will follow outpatient and repeat in a couple weeks. HR elevated yesterday due to not taking his medications yesterday morning. We do not carry his home medication tradolopril-verapamil here in the hospital. He was given 180 mg verpamil ER yesterday evening and tachycardia resolved. Given 240 mg this am and HR trending down to 90s-100s at this time. D/c with rx for lasix 20 mg daily. Discussed daily weights and monitoring fluid intake. Follow-up with PCP next week. No changes to home medications. Appearance: Pleasant, No Apparent Distress and Alert HEENT: MMM, Supple and No JVD CVS: No Murmur and No Rubs Abdomen: Soft, Non-Tender and No Distention Respiratory: No Dyspnea Extremities: No Edema Vital Signs: Most Recent Vital Signs Temperature 97.8 F 01/30/24 09:45 Temperature Source Tympanic 01/30/24 09:45 Temperature Source Temporal Artery Scan 01/29/24 06:29 Pulse Rate 110 H 01/30/24 09:45 Respiratory Rate 18 01/30/24 09:45 Blood Pressure 113/73 01/30/24 09:45 Blood Pressure Mean 86 01/30/24 09:45 Blood Pressure Left Arm 134/104 01/29/24 10:56 Blood Pressure Location Right Arm 01/30/24 09:45 Blood Pressure Position Supine 01/30/24 09:45 O2 Sat by Pulse Oximetry 97 01/30/24 09:45 Oxygen Delivery Method Room Air 01/30/24 09:45 Height 5 ft 10 in 01/29/24 19:58 Weight 187 lb 5 oz 01/30/24 05:38 Telemetry Type Remote Telemetry 01/30/24 07:00 Telemetry Monitoring Continues 01/30/24 07:00 Irregular Telemetry Rate (Approximate) 80-90 BPM 01/29/24 19:00 Telemetry Heart Rate 120 H 01/30/24 07:00 EKG NC Interval 0.13 01/30/24 07:00 EKG QRS Interval 0.08 01/30/24 07:00 Telemetry Strip Reading Sinus Tachycardia 01/30/24 07:00 Lab Results Last 24 Hours: 01/30/24 05:16 WBC 6.56 RBC 4.46 L Hgb 11.6 L Hct 37.1 L MCV 83.2 MCH 26.0 L MCHC 31.3 L RDW Coeff of Ramesh 15.4 H Plt Count 203 Immature Gran % (Auto) 0.5 Neut % (Auto) 55.7 Lymph % (Auto) 31.9 [place] % (Auto) 10.2 H Eos % (Auto) 0.9 Baso % (Auto) 0.8 Neut # (Auto) 3.7 Lymph # (Auto) 2.1 [place] # (Auto) 0.7 Eos # (Auto) 0.1 Baso # (Auto) 0.1 Immature Gran # (Auto) 0.0 Sodium 141.8 Potassium 3.60 Chloride 104.6 Carbon Dioxide 25.2 Anion Gap 15.60 BUN 18.0 Creatinine 0.97 Estimated GFR (MDRD) 76.00 BUN/Creatinine Ratio 18.55 Glucose 148.2 H Calcium 9.51 Total Bilirubin 0.72 AST 25.2 ALT 19.9 Alkaline Phosphatase 65.0 Total Protein 7.62 Albumin 4.46 Globulin 3.16 Albumin/Globulin Ratio 1.41 Discharge Instructions Discharge Planning: Discharge Planning > 40 minutes If patient is discharged with left ventricular systolic dysfunction: No Discharged with a beta nancy? [] If no, why not? [] Discharged with an laverne/arb? [] If no, why not? [] DX: CHF RX: LASIX DIABETIC DIET ACTIVITY TOLERATED FOLLOW-UP WITH PCP NEXT WEEK Discharge Medications: Medications at Discharge (Home Meds & RX) omeprazole 20 mg capsule,delayed release 20 mg PO BID 12/12/22 rosuvastatin 20 mg tablet (Crestor) 20 mg PO QDAY 12/12/22 carisoprodol 350 mg tablet (Soma) 350 mg PO QID #120 tabs 02/18/23 carvedilol 25 mg tablet 25 mg PO BID #180 tabs 04/24/23 diclofenac sodium 1 % topical gel 4 g topical BID #100 grams 04/24/23 losartan 100 mg-hydrochlorothiazide 12.5 mg tablet 1 tab PO QDAY #30 tabs 04/24/23 dulaglutide 1.5 mg/0.5 mL subcutaneous pen injector (Trulicity) 1.5 mg (0.5 mL) subcut QWEEK #6 mL 05/19/23 blood sugar diagnostic (Anonymous Youuch Ultra Test strips) #100 ea 05/26/23 clopidogrel 75 mg tablet (Plavix) 75 mg PO QDAY 07/10/23 trandolapril 4 mg-verapamil ER 240 mg tablet,immed-exten release 24 hr See Rx Instructions .Route .COMPLEX #90 tabs 08/05/23 gabapentin 300 mg capsule 300 mg PO TID #270 caps 09/01/23 pen needle, diabetic 32 gauge x 5/32" (Comfort EZ Pen Badger) #100 ea 09/08/23 pen needle, diabetic 32 gauge x 5/32" (Comfort EZ Pen Badger) #100 ea 09/10/23 metaxalone 800 mg tablet 800 mg PO BID PRN muscle pain #60 tabs 09/23/23 sitagliptin phosphate 50 mg-metformin 1,000 mg tablet (Janumet) 1 tab PO BID #180 tabs 10/20/23 amlodipine 10 mg tablet 10 mg PO QDAY #90 tabs 11/06/23 hydrocodone 10 mg-acetaminophen 325 mg tablet 1 tab PO Q6H PRN pain #120 tabs 11/06/23 tamsulosin 0.4 mg capsule (Flomax) 0.4 mg PO QDAY MED CHANGED TO ONE TIME DAILY #90 caps 11/06/23 terazosin 2 mg capsule 2 mg PO QPM 11/06/23 metformin 500 mg tablet 500 mg PO BID #180 tabs 12/31/23 fenofibrate micronized 67 mg capsule 67 mg PO QDAY #90 caps 01/22/24 insulin degludec 100 unit/mL (3 mL) subcutaneous pen (Tresiba FlexTouch U-100 insulin) 40 unit (0.4 mL) subcut QHS #45 mL 01/22/24 Discharge Plan Discharge Discharge Orders: Discharge Patient (ONCE); Ordered 01/30/24 Ordered By: FLORIN BARBOSA Activity Restrictions/Additional Instructions: Diabetic Diet Activity as tolerated Medications: Lasix 20 mg daily (fluid pill) YOUR DOCTOR'S OFFICE IS CLOSED ON FRIDAYS AND SO WE WERE UNABLE TO MAKE A HOSPITAL FOLLOW UP APPOINTMENT FOR YOU. PLEASE CONTACT DR. NAGEL'S OFFICE AT [phone] TO SCHEDULE A HOSPITAL FOLLOW UP APPOINTMENT. Instructions: Heart Failure (GEN) Patient Disposition: HOME WITH FAMILY CARE Prescriptions: New furosemide [Lasix] 20 mg tablet 20 mg PO DAILY Qty: 30 0RF Continued Trulicity 1.5 mg/0.5 mL pen injector 1.5 mg subcut QWEEK Qty: 6 1RF (DME) OneTouch Ultra Test Strip See Rx Instructions .ROUTE Qty: 100 5RF Rx Instructions: As directed E11.9 trandolapril-verapamil 4-240 mg tablet, IR - ER, biphasic 24hr See Rx Instructions .ROUTE .COMPLEX Qty: 90 1RF Dose Instruction: TAKE 1 TABLET DAILY Rx Instructions: TAKE 1 TABLET DAILY gabapentin 300 mg capsule 300 mg PO TID Qty: 270 1RF (DME) pen needle, diabetic [Comfort EZ Pen Badger] 32 gauge x 5/32" needle See Rx Instructions .ROUTE Qty: 100 5RF Rx Instructions: As directed E11.9 DM2 ONE TIME DAILY (DME) pen needle, diabetic [Comfort EZ Pen Badger] 32 gauge x 5/32" needle See Rx Instructions .ROUTE Qty: 100 1RF Rx Instructions: As directed E11.9 DM2 test daily metaxalone 800 mg tablet 800 mg PO BID PRN (Reason: muscle pain) Qty: 60 0RF Janumet 50-1,000 mg tablet 1 tab PO BID Qty: 180 1RF metformin 500 mg tablet 500 mg PO BID Qty: 180 1RF fenofibrate micronized 67 mg capsule 67 mg PO QDAY Qty: 90 1RF insulin degludec [Tresiba FlexTouch U-100] 100 unit/mL (3 mL) insulin pen 40 unit subcut QHS Qty: 45 1RF rosuvastatin [Crestor] 20 mg tablet 20 mg PO QDAY omeprazole 20 mg capsule,delayed release(DR/EC) 20 mg PO BID diclofenac sodium 1 % gel 4 g topical BID Qty: 100 5RF Rx Instructions: apply to single elbow, wrist or hand; for hand includes palm/fingers/back of hand carvedilol 25 mg tablet 25 mg PO BID Qty: 180 1RF losartan-hydrochlorothiazide 100-12.5 mg tablet 1 tab PO QDAY Qty: 30 1RF Rx Instructions: PATIENT IS TO STOP TAKING LOSARTAN/HCTZ 100/25 clopidogrel [Plavix] 75 mg tablet 75 mg PO QDAY terazosin 2 mg capsule 2 mg PO QPM Rx Instructions: take 2 capsules daily at bedtime hydrocodone-acetaminophen 10-325 mg tablet 1 tab PO Q6H PRN (Reason: pain) Qty: 120 0RF tamsulosin [Flomax] 0.4 mg capsule 0.4 mg PO QDAY Qty: 90 1RF amlodipine 10 mg tablet 10 mg PO QDAY Qty: 90 1RF carisoprodol [Soma] 350 mg tablet 350 mg PO QID Qty: 120 1RF Did you review [place] [employer] for ALL controlled substances?: No Discussed opioids are addictive and Narcan is available by prescription or from pharmacy.: No Condition: Fair
--- NOTE | 2024-02-02 14:29 | ECHO2D ---
Date of Exam: 01/29/2024 Ordering Physician: DR. NAGEL Room #: 115 Reason for Echo: SHORTNESS OF BREATH, CORONARY ARTERY DISEASE WITH STENT, CHEST TIGHTNESS M-Mode Normal Adult Results LV Dimensions Normal Adult Results AoV Opening excursions >1.6 >1.6 LVEDD-base- 3.5-5.8 5.2 Ao root dimensions 2.0-3.7 3.0 LVESD-base- 3.1-4.6 L. Atrium dimensions 1.9-3.8 4.0 Post. Wall thickness 0.8-1.1 1.1 IV septum (thickness) 0.7-1.2 1.2 Post. Wall excursion 0.72-1.3 0.8 Septal motion 0.8 Systolic motion R. Ventricular cavity 1.5-2.0 NORMAL LVEF 60% 47% Paradoxical septal wall motion NORMAL 2-D : 2-D M Mode Echocardiogram was performed using apical four chamber and left parasternal long and short axis views. Mitral, tricuspid and aortic valves appear to be normal. MILDLY HYPOKINETIC LEFT VENTRICLE. Left ventricle cavity size is normal. Left atrial cavity size and aortic root appear to be normal. There is no pericardial effusion. There is no thrombus noted in the left ventricle or left atrial cavity. M-MODE: MV: NORMAL AV: NORMAL TV: NORMAL PV: NORMAL CHAMBER SIZE: ENLARGED LEFT ATRIAL CAVITY (BORDERLINE) WALL MOTION: MILDLY HYPOKINETIC LEFT VENTRICLE PERICARDIUM: NORMAL INTERPRETATION: 1. WAS DONE WITH ATRIAL FLUTTER WITH RATE 120 BPM. 2. BORDERLINE LEFT VENTRICULAR HYPERTROPHY WITH BORDERLINE LEFT ATRIAL CAVITY ENLARGEMENT. 3. NORMAL VALVES. 4. LEFT VENTRICLE SIZE NORMAL. 5. HYPOKINETIC LEFT VENTRICLE WITH EJECTION FRACTION 48%. [facility]
== END 2024-01-30 11:35 | disposition home or self-care (01) | DRG 293 ==
LOC: ED 06:27 → MEDSURG B 06:27
PROVIDERS: ADMIT Hospitalist; ATTEND Nurse Practitioner Family
DX: J44.9 Chronic obstructive pulmonary disease, unspecified; Z79.84 Long term (current) use of oral hypoglycemic drugs; R07.9 Chest pain, unspecified; Z20.822 Contact with and (suspected) exposure to COVID-19; Z79.4 Long term (current) use of insulin; Z95.5 Presence of coronary angioplasty implant and graft; Z86.73 Personal history of transient ischemic attack (TIA), and cerebral infarction without residual deficits; E11.9 Type 2 diabetes mellitus without complications; I50.9 Heart failure, unspecified; Z79.899 Other long term (current) drug therapy; R06.00 Dyspnea, unspecified; Z51.81 Encounter for therapeutic drug level monitoring; R05.9 Cough, unspecified; I10 Essential (primary) hypertension